=== PATIENT | male | born 1995 | race Caucasian/White ===

== ENCOUNTER 2024-12-20 11:24 | Emergency (ER) | payer OTHER, SELFPAY ==
[2024-12-20 11:44] VITALS: BP 166/111; PULSE 95; RESP 16; TEMP 36.8; O2SAT 98
[2024-12-20 11:45] VITALS: BP 182/131
--- NOTE | 2024-12-20 12:59 | ED.SKABFB ---
HPI - Skin/Abscess/Foreign Bdy General Chief complaint: Skin/Abscess/Foreign Body Stated complaint: Black spot on penis Time Seen by Provider: 12/20/24 12:50 Source: patient and RN notes reviewed Mode of arrival: ambulatory Limitations: no limitations History of Present Illness HPI narrative: 29-year-old male patient presents today complaining of a ?black spot? on the perineum where he has several skin tags that have been present since high school. He noted the area around midnight last night and complains of some mild discomfort. Related Data Allergies Allergy/AdvReac Type Severity Reaction Status Date / Time No Known Allergies Allergy Verified 12/20/24 11:35 PMFSH Social History Social History (Reviewed 12/20/24 @ 13:00 by Nia Valera, EQUIPMENT MONITOR PHOTOTYPESETTING, SECURITY INTERN) Smoking status: Never smoker Comments At time of signature, I have reviewed and agree with nursing past medical, surgical, social and family history unless otherwise noted. Please see nursing chart for further information. There is no relevant family history pertinent to the presenting complaint Exam Narrative: GENERAL: Well-appearing, well-nourished, and in no acute distress. HEAD: Normocephalic, atraumatic. EYES: EOMI. No redness or drainage. Conjunctivae normal. ENT: Mucous membranes pink and moist. NECK: Normal AROM. CHEST: No respiratory distress. EXTREMITIES: Normal range of motion. No edema. SKIN: Warm, dry, no rash. Capillary refill normal. Normal skin turgor. Exam chaperoned by my student Berenice Polk RN. Cluster of moderately sized skin tags to the perineum. 1 skin tag is black in color and firm and tender to palpation. No surrounding erythema or edema. NEURO: No focal deficits. Alert and oriented x3. Gait steady. PSYCH: Normal affect. No signs of depression or anxiety. Course Course Level of Care: Express Care Visit Vital Signs Vital signs: Vital Signs Temperature 98.3 F 12/20/24 11:44 Pulse Rate 95 12/20/24 11:44 Respiratory Rate 16 12/20/24 11:44 Blood Pressure 166/111 H 12/20/24 11:44 Pulse Oximetry 98 12/20/24 11:44 Oxygen Delivery Room Air 12/20/24 11:44 Temperature 98.3 F 12/20/24 11:44 Pulse Rate 95 12/20/24 13:22 Respiratory Rate 16 12/20/24 11:44 Blood Pressure 172/120 H 12/20/24 13:22 Pulse Oximetry 98 12/20/24 11:44 Oxygen Delivery Room Air 12/20/24 11:44 Reviewed MDM - Skin/Abscess/Foreign Bdy MDM Narrative Medical decision making narrative: Area in question in consistent with a skin tag with blood flow that has been cut off, likely due to twisting. Recommend leaving skin tag alone until it falls off. Also recommend follow up with PCP or dermatology for further evaluation of this cluster of skin tags as well as monitoring for infection once this blackened skin tag falls off. Patient agrees with plan. Patient's blood pressure has been quite elevated during his visit today. Upon arrival, 166/111. Later prior to discharge, 189/122 and 172/120. Patient has no history of illicit drug use, drinks no caffeine, and uses no supplements. He last saw his PCP over 1 year ago, does not remember her name, and states he was told he had some elevated BP at his last appointment, but was not started on any medication at that time. Patient has no symptoms to suggest complications related to BP such as headache, dizziness, chest pain, vision changes. Consultation with collaborating physician, Dr. Cobb at 1333. Recommends starting patient on some daily amlodipine with close PCP follow up. Patient agrees with plan. Anticipatory guidance and ED precautions given. Differential Diagnosis Differential diagnosis: Likely abscess of skin or subcutaneous tissue, cellulitis and other (skin tag) Critical Care Time Critical Care Time Critical Care Time: No Discharge Plan Discharge Clinical Impression: Skin tag of perineum in male, Elevated blood pressure reading without diagnosis of hypertension Patient Disposition: Home Condition: Stable Additional Instructions: As discussed, the blackened area is a skin tag who is blood flow has been cut off. Please leave this alone as it will likely fall off on its own in the next few days. After avulsed off, please monitor for any signs of infection such as redness, swelling, increased pain, or drainage. Please follow-up with your PCP or Dermatology regarding the remainder of your skin tags. Please call your PCPs office today and schedule a follow-up visit as soon as possible. Start the amlodipine and take as directed for your extremely elevated blood pressure. If you develop headache, dizziness or lightheadedness, chest pain, please go to the ER immediately. Patient Language: South African Prescriptions: New amlodipine 2.5 mg tablet 2.5 mg PO DAILY Qty: 30 0RF Follow-up/Referrals: PHYSICIAN,BUS CLEANER [Primary Care Provider, Internal Medicine] Stand Alone Forms: Work/School Release IP Time of Disposition: 13:45
[2024-12-20 13:20] VITALS: BP 189/122; PULSE 95
[2024-12-20 13:22] VITALS: BP 172/120; PULSE 95
== END 2024-12-20 13:40 | disposition home or self-care (01) ==
PROVIDERS: Emergency Provider Nurse Practitioner
DX: L91.8 Other hypertrophic disorders of the skin (principal); R03.0 Elevated blood-pressure reading, without diagnosis of hypertension
CPT/HCPCS: 99203; G0463

== ENCOUNTER 2025-01-10 09:38 | Emergency (ER) | payer OTHER, SELFPAY ==
--- NOTE | ~2025-01-10 | CT_ITS ---
EXAMINATION: CT brain wo con DATE: 01/10/2025 10:43 INDICATION: Headaches TECHNIQUE: Computed tomography (CT) of the head was performed without intravenous contrast. Sagittal and coronal reconstructions were performed. The mA was adjusted according to patient size. Iterative reconstruction technique was employed. The dose-length product was 605.33 mGy-cm. COMPARISON: None FINDINGS: No acute intracranial hemorrhage, acute infarction or abnormal extra axial fluid collection. Ventricles are normal and symmetric. Normal variant cavum septum pellucidum et vergae. No mass/mass effect. The orbits, paranasal sinuses and mastoid air cells are normal. IMPRESSION: 1. Normal brain. No acute intracranial process. Reviewed, dictated and finalized at location A. [facility]
[2025-01-10 09:45] VITALS: BP 175/109; PULSE 104; RESP 17; TEMP 36.6; O2SAT 99
[2025-01-10 10:31] VITALS: PULSE 98; O2SAT 98
--- NOTE | 2025-01-10 10:31 | ED_ITS ---
HPI - Neuro Symptoms/Deficit General Chief Complaint: Neuro Symptoms/Deficit Stated Complaint: double vision/anxiety Time Seen by Provider: 01/10/25 09:49 Source: patient Mode of arrival: ambulatory Limitations: no limitations History of Present Illness HPI Narrative: This is a 29-year-old male that presents to the emergency department with several neurologic complaints. Ongoing over the last week. Reports he has had some headaches. Reports a focal area of numbness to the right side of the face. Unsure if it is due to a tooth that has been bothering him. Reports this morning he felt like he was having double vision. Also reports he felt like his right hand was weak. Denies any current symptoms. Reports he has been very anxious recently. Related Data Allergies Allergy/AdvReac Type Severity Reaction Status Date / Time No Known Allergies Allergy Verified 12/20/24 11:35 Review of Systems 2 Review of Systems: All systems reviewed & are unremarkable except as noted in HPI and below PMFSH Past Medical History Medical History (Updated 01/10/25 @ 12:14 by Bhavya Hensley PA-C) Hypertension Social History Social History (Reviewed 12/20/24 @ 13:00 by Nia Valera, CLINICAL QUALITY MANAGER, INSTRUCTIONAL SERVICES SPECIALIST) Smoking status: Never smoker Exam 2 Narrative: GENERAL: Well-appearing, well-nourished, and in no acute distress. HEAD: Normocephalic, atraumatic. EYES: PERRLA and EOMI. ENT: Nares clear, no rhinorrhea or epistaxis. Mucous membranes moist. Oropharynx without tonsillar hypertrophy exudate or other lesions. Bilateral TMs pearly lara non-bulging NECK: Supple. No adenopathy or masses. CHEST: Clear to auscultation. No respiratory distress. No wheezes rales or rhonchi HEART: Regular rate and rhythm. No murmur heard. Normal peripheral pulses. ABDOMEN: Soft, nontender, nondistended, normal active bowel sounds. EXTREMITIES: Normal range of motion. No edema. Strength equal in bilateral upper and lower extremities (5/5) SKIN: Warm, dry, no rash. NEURO: No focal deficits. Alert and oriented x3. Cranial nerves 2-12 grossly intact PSYCH: Normal mood and affect Course Vital Signs Vital signs: Vital Signs Temperature 98 F 01/10/25 09:45 Pulse Rate 104 H 01/10/25 09:45 Respiratory Rate 17 11/24/25 09:45 Blood Pressure 175/109 H 01/10/25 09:45 Pulse Oximetry 99 01/10/25 09:45 Oxygen Delivery Room Air 01/10/25 09:45 Temperature 98 F 01/10/25 09:45 Pulse Rate 93 01/10/25 12:13 Respiratory Rate 16 01/10/25 12:13 Blood Pressure 162/113 H 01/10/25 12:13 Pulse Oximetry 96 01/10/25 12:13 Oxygen Delivery Room Air 01/10/25 09:45 MDM - Neuro Symptoms/Deficit MDM Narrative Medical decision making narrative: Patient presents the emergency department with several neurologic complaints. Ongoing over the last week. Reports he has had some headaches, reports he felt like his right arm was weak, reports double vision that subsided. Reporting he has been having trouble with anxiety recently. He is neurologically intact without any current symptoms. Hypertensive upon arrival, this did down trend without intervention. He does have known history of hypertension. CBC and metabolic panel without concerning findings. CT brain is normal. Patient updated on his workup and agrees with plan of care. Instructed to have further follow-up with his PCP. Given information follow-up with Neurology. He was given warnings to return to the ER Differential Diagnosis Differential diagnosis: Likely peripheral neuropathy, cerebrovascular accident, transient cerebral ischemia and other (anxiety) Lab Data Attestation: I reviewed the patient's lab results. 01/10/25 10:52 01/10/25 10:52 Labs: Lab Results 01/10/25 01/10/25 Range/Units 10:50 10:52 WBC 13.2 H (4.5-10.0) K/mm3 RBC 5.44 (4.6-6.20) M/mm3 Hgb 15.5 (14.0-18.0) g/dL Hct 45.0 (42.0-52.0) % MCV 82.7 (80-100) fl MCH 28.5 (26-34) pg MCHC 34.4 (32-36) g/dl RDW 13.4 (11.5-14.5) % Plt Count 367 (150-375) k/mm3 MPV 7.8 (7.4-10.4) fl Immature Gran % (Auto) 1.1 H (0-0.5) % Neut % (Auto) 68.3 (45.5-73.1) % Lymph % (Auto) 22.7 (18.3-44.2) % [place] % (Auto) 6.5 (2.6-8.5) % Eos % (Auto) 1.0 (0-4.4) % Baso % (Auto) 0.4 (0.2-1.2) % Lymph # (Auto) 2.99 (0.9-3.2) K/mm3 [place] # (Auto) 0.9 H (0.1-0.6) K/mm3 Eos # (Auto) 0.1 (0-0.3) K/mm3 Baso # (Auto) 0.1 (0.0-0.1) K/mm3 Abs Immat Gran (auto) 0.15 H (0.00-0.031) K/mm3 Absolute Neuts (auto) 9.0 H (1.3-6.7) K/mm3 Absolute Nucleated RBC 0.000 (0.0-0.012) K/mm3 Nucleated RBC % 0.0 (0.0-0.2) % PT 12.8 (11.1-14.7) Seconds INR 1.0 APTT 28.2 (22.3-36.8) Seconds Sodium 138 (137-145) mmol/L Potassium 3.7 (3.4-5.0) mmol/L Chloride 103 (98-107) mmol/L Carbon Dioxide 27 (22-30) mmol/L Anion Gap 8 (4-12) mmol/L BUN 10 (9-20) mg/dL Creatinine 0.82 (0.7-1.3) mg/dL Estim Creat Clear Calc 156 ml/min Estimated GFR > 60 (59 - ) Glucose 94 (65-110) mg/dL POC Capillary Glucose 102 (65-105) mg/dl Calcium 8.8 (8.4-10.2) mg/dL Total Bilirubin 0.6 (0.2-1.3) mg/dL AST 31 (17-59) U/L ALT 57 H (6-50) U/L Alkaline Phosphatase 98 (38-126) U/L Total Protein 6.9 (6.3-8.2) g/dL Albumin 4.1 (3.5-5.1) g/dL TSH (Reflex) 1.740 (0.465-4.68) uIU/mL Imaging Data Radiologist's impression: ITS Impressions Head CT 01/10/25 11:12 IMPRESSION: 1. Normal brain. No acute intracranial process. ECG Data EKG #1: ECG completion date: 01/10/25 EKG Interpretation: normal rate, sinus rhythm, no ST changes and normal QT Critical Care Time Critical Care Time Critical Care Time: No Discharge Plan Discharge Clinical Impression: Double vision Patient Disposition: Home Condition: Stable Instructions: Acute Headache (ED), Diplopia (ED) Additional Instructions: Return to the emergency department if you experience fever, chest pain, shortness of breath, abdominal pain with nausea and vomiting, weakness, numbness, or any other symptoms that are concerning to you. Take your blood pressure medication as prescribed Follow up with your primary care doctor for further evaluation Patient Language: Citizen Of [place] Prescriptions: No Action amlodipine 2.5 mg tablet 2.5 mg PO DAILY Qty: 30 0RF Follow-up/Referrals: Stanley Kearns MD [Physician, Neurology] PHYSICIAN,DIALYSIS NURSE [Primary Care Provider, Internal Medicine] Stand Alone Forms: Work/School Release IP
--- NOTE | 2025-01-10 10:31 | ECG_ITS ---
Test Date: 2025-01-10 11:07:37 Measurements Intervals Bazine Rate: 86 P: 19 NH: 164 QRS: 3 QRSD: 93 T: 6 QT: 342 QTc: 411 Interpretive Statements SINUS RHYTHM EARLY REPOLARIZATION No previous ECG available for comparison Electronically Signed On 01-10-2025 13:56:41 LICENSED LOAN OFFICER by Nadeem Arora M.D.
--- OUTSIDE RECORDS SUMMARY | 2025-01-10 10:50 | XMS_ITS | Clinical Summary ---
Author Organization [facility] Address [facility] [place] [address] Care Team Providers Care Hot Box Checker Name Role Phone Srinath Houser MD Primary Care Provider [phone] Allergies No known active allergies Medications methylPREDNISol one, MARK, 4 MG tablet Take as directed on package. 1 each 06/19/2019 Active promethazine-de xtromethorphan 6.25-15 MG/5ML syrup Take 5 mLs by mouth 4 (four) times daily as needed for Cough. 118 mL 06/19/2019 Active loratadine (CLARITIN) 10 MG tablet Take 1 tablet (10 mg total) by mouth daily. 30 tablet 06/19/2019 Active Social History Tobacco Use Types Packs/Day Years Used Date Smoking Tobacco: Never Smokeless Tobacco: Never Alcohol Use Standard Drinks/Week Comments Yes 0 (1 standard drink = 0.6 oz pur e alcohol) Rarely Sex and Gender Information Value Date Recorded Sex Assigned at Not on file Legal Sex Male 8:26 PM CDT Gender Identity Not on file Sexual Orientation Not on file Last Filed Vital Signs Vital Sign Reading Time Taken Comments Blood Pressure 133/106 06/19/2019 5:44 PM CDT Pulse 91 06/19/2019 5:44 PM CDT Temperature 36.8 C (98.2 F) 06/19/2019 3:59 PM CDT Respiratory Rate 18 06/19/2019 3:59 PM CDT Oxygen Saturation 96% 06/19/2019 5:44 PM CDT Inhaled Oxygen Concentration - - Weight 117.7 kg (259 lb 6 oz) 06/19/2019 3:59 PM CDT Height 188 cm (6' 2) 06/19/2019 3:59 PM CDT Body Mass Index 33.3 06/19/2019 3:59 PM CDT Plan of Treatment Health Maintenance Due Date Last Done Comments Annual Physical 2000 Hepatitis C 09/11/2015 DTaP, Tdap and Td Vaccines ( 1 - Tdap) 2016 Hepatitis B Vaccines (1 of 3 - 19+ 3-dose series) 2016 HPV Vaccines (1 - 3-dose SCD M series) 2024 COVID-19 Vaccine (1 - 2024-2 6 season) 2024 Influenza Adult (#1) 2024 Hepatitis A Vaccines Aged Out No long er eligible based on patient's age to complete this topic Meningococcal B Vaccine Aged Out No l onger eligible based on patient's age to complete this topic Meningococcal Vaccine Aged Out No lenora erin eligible based on patient's age to complete this topic Pneumococcal Vaccine: Pediat rics (0 to 5 Years) and At-Risk Patients (6 to 49 Years) Aged Out No longer eligible b ased on patient's age to complete this topic RSV Immunizations Under 20 Months Aged Out No longer eligible based on patient's age to complete this topic Insurance [facility] Care Teams Hot Box Checker Relationship Specialty Start Date End Date Srinath Houser MD [address] [place] [address] PCP - General FAMILY PRACTICE 06/19/19
--- OUTSIDE RECORDS SUMMARY | 2025-01-10 10:50 | XMS_ITS | Clinical Summary ---
Author Organization [facility] [employer] [place] Address [address] [place] [address] Care Team Providers Care Motorcycle Builder Name Role Phone Yadi Brice MD Primary Care Provider [phone] Allergies Active Allergy Reactions Criticality Noted Date Comments Lactose Diarrhea Low 08/25/2021 Medications Irbesartan (AVAPRO) 75 mg tabletIndications :Uncontrolled hypertension Take 1 Tablet (75 mg) by mouth daily at bedtime. 100 Tablet 5 Active amLODIPine (NORVASC) 2.5 mg tablet Take 1 Tablet by mouth daily. 5 01/06/20 25 Discontinue d(Alternate therapy prescribed) Active Problems Problem Noted Date Diagnosed Date Uncontrolled hypertension 01/05/2025 Morbid obesity with body mass index of 40.0-49.9 03/19/2024 Conductive hearing loss of r ight ear with unrestricted hearing of left ear 01/12/2020 Encounters Date Type Department Care Team Description 01/05/2025 10:00 AM INSTALLERS MECHANICAL Office Visit [facility] [employer] [place] [address] [place] [address] Yadi Brice MD Uncontrolled hypertension (Primary Dx); Morbid obesity with body mass index of 40.0-49.9 ([facility]) 12/22/2024 11:00 AM INSTALLERS MECHANICAL Office Visit [facility] [employer] [place] [address] [place] [address] Galina Castano, CLARA Benign hypertension (Primary Dx); Uncontrolled hypertension from Last 3 Months Immunizations Immunization Administration Dates Next Due INFLUENZA VACCINE QUADRIVALENT 6 MOS UP PF IM ,12/03/2017 INFLUENZA VACCINE TRIVALENT SPLIT VIRUS, (6 MOS UP), 0.5ML (PF), IM 01/05/2025 Family History Medical History Relation Name Comments No Known Problems Maternal Grandfather No Known Problems Maternal Grandmother Diabetes Mother Hypertension Mother No Known Problems Paternal Grandmother Relation Name Status Comments Father Alive Maternal Grandfather Alive Maternal Grandmother Alive Mother Alive Paternal Grandfather Unknown Paternal Grandmother Alive Social History Tobacco Use Types Packs/Day Years Used Date Smoking Tobacco: Never Smokeless Tobacco: Never Tobacco Cessation:Counseling Given: Not Answered Alcohol Use Standard Drinks/Week Comments Yes 0 (1 standard drink = 0.6 oz pure alcohol) Very occasional 1-2 drinks a year Sex and Gender Information Value Date Recorded Sex Assigned at Not on file Legal Sex Male 6:26 PM INSTALLERS MECHANICAL Gender Identity Not on file Sexual Orientation Not on file Last Filed Vital Signs Vital Sign Reading Time Taken Comments Blood Pressure 164/100 01/05/2025 10:20 AM INSTALLERS MECHANICAL Pulse 101 01/05/2025 9:35 AM INSTALLERS MECHANICAL Temperature 36.8 C (98.3 F) 01/05/2025 9:35 AM INSTALLERS MECHANICAL Respiratory Rate 18 01/05/2025 9:35 AM INSTALLERS MECHANICAL Oxygen Saturation 97% 01/05/2025 9:35 AM INSTALLERS MECHANICAL Inhaled Oxygen Concentration - - Weight 127.5 kg (281 lb) 01/05/2025 9:35 AM INSTALLERS MECHANICAL Height 175.3 cm (5' 9) 01/05/2025 9:35 AM INSTALLERS MECHANICAL Body Mass Index 41.5 01/05/2025 9:35 AM INSTALLERS MECHANICAL Plan of Treatment Upcoming Encounters Date Type Department Care Team (Late st Contact Info) Description 02/02/2025 10:00 AM INSTALLERS MECHANICAL Office Visit [facility] at [facility] [employer] [place] [address] [place] [address] Yadi Brice MD [address] [email or web address] [address] Health Maintenance Due Date Last Done Comments DTAP/TDAP/TD VACCINES (1 - Tdap) 2016 HEPATITIS B VACCINES (1 of 3 - 19+ 3-dose series) 2016 HPV VACCINES (1 - 3-dose SCDM series) 2024 Preventative Visit- Commercial Completed 03/19/2024 INFLUENZA VACCINE Completed 01/05/2025, , 12/03/2017 Insurance [facility] Care Teams Motorcycle Builder Relationship Specialty Start Date End Date Yadi Brice MD [address] [place] [address] PCP - General Internal Medicine 12/22/24
--- OUTSIDE RECORDS SUMMARY | 2025-01-10 10:50 | XMS_ITS | Clinical Summary ---
Author Organization [facility] Address [address] [place] [address] Care Team Providers Care Rn Quality Name Role Phone Provider, None Primary Care Provider Unavailabl e Allergies No known active allergies Medications No known medications Active Problems Problem Noted Date Diagnosed Date Conductive hearing loss of r ight ear with unrestricted hearing of left ear 01/12/2020 Immunizations Immunization Administration Dates Next Due Influenza Vaccine, Quadrivalent, PF 11/03/2019,1 Social History Tobacco Use Types Packs/Day Years Used Date Smoking Tobacco: Never Smokeless Tobacco: Never Tobacco Cessation:Counseling Given: Yes Alcohol Use Standard Drinks/Week Comments Not Currently 0 (1 standard drink = 0.6 oz pur e alcohol) AUDIT-C Answer Date Recorded Q1: How often do you have a drink containing alc ohol? Never 01/12/2020 Average Number of Drinks Not on file 020 Frequency of Binge Drinking Not on file 12/19 PHQ-2 Answer Date Recorded Total Score - Questions 1-9 0 12/19 Sex and Gender Information Value Date Recorded Sex Assigned at Not on file Legal Sex Male 9:28 AM CDT Gender Identity Not on file Sexual Orientation Not on file Last Filed Vital Signs Vital Sign Reading Time Taken Comments Blood Pressure 156/89 08/25/2021 5:52 PM CDT Pulse 65 08/25/2021 5:52 PM CDT Temperature 36.8 C (98.3 F) 08/25/2021 1:55 PM CDT Respiratory Rate 18 08/25/2021 5:52 PM CDT Oxygen Saturation 96% 08/25/2021 5:52 PM CDT Inhaled Oxygen Concentration - - Weight 111.1 kg (245 lb) 08/25/2021 1:55 PM CDT Height 175.3 cm (5' 9) 08/25/2021 1:55 PM CDT Body Mass Index 36.18 08/25/2021 1:55 PM CDT Plan of Treatment Health Maintenance Due Date Last Done Comments Hepatitis C Virus (HCV) Screening 1997 TdaP Immunization 1997 Varicella Immunization (1 of 2 - 13+ 2-dose series) 2010 Hepatitis B Immunization (1 of 3 - 19+ 3-dose series) 2016 Human Papillomavirus (HPV) Immunization (1 - 3-dose SCDM series) 2024 Influenza Immunization (#1) 10/18/202410/18, 12/03/2017 SARS-COV-2 Immunization (1 - 2024- season) 2024 Respiratory Syncytial Virus (RSV) Immunization (Adult) (1 - 1-dose 75+ series) 2072 Meningococcal Immunization (ACWY) Aged Out No longer eligible b ased on patient's age to complete this topic Pneumococcal Immunization Combined Aged Out No longer eligible b ased on patient's age to complete this topic Rotavirus Immunization Aged Out No lo nger eligible based on patient's age to complete this topic Insurance Care Teams Rn Quality Relationship Specialty Start Date End Date Provider, None [place] PCP - General 08/25/21
[2025-01-10 10:55] VITALS: BP 181/112; PULSE 95; RESP 18; O2SAT 100
[2025-01-10 10:57] LABS: Hematocrit 45.0 % (42.0-52.0); Hemoglobin 15.5 g/dL (14.0-18.0); Immature Granulocyte Percent A 1.1 % (0-0.5); Lymphocytes Absolute Auto 2.99 K/mm3 (0.9-3.2); Mean Corpuscular HGB Conc 34.4 g/dl (32-36); Mean Corpuscular Hemoglobin 28.5 pg (26-34); Mean Corpuscular Volume 82.7 fl (80-100); Nucleated Red Blood Cells Absolute Auto 0.000 K/mm3 (0.0-0.012); Nucleated Red Blood Cells Perc 0.0 % (0.0-0.2); Platelet Count Result 367 k/mm3 (150-375); Red Blood Count 5.44 M/mm3 (4.6-6.20); White Blood Count 13.2 K/mm3 (4.5-10.0)
[2025-01-10 11:00] VITALS: BP 176/110; PULSE 97; RESP 20; O2SAT 94
[2025-01-10 11:01] VITALS: PULSE 101; RESP 20; O2SAT 98
[2025-01-10 11:10] LABS: INR 1.0; Prothrombin Time 12.8 Seconds (11.1-14.7)
[2025-01-10 11:11] LABS: Partial Thromboplastin Time 28.2 Seconds (22.3-36.8)
[2025-01-10 11:18] LABS: Alanine Aminotransferase 57 U/L (6-50); Albumin Level 4.1 g/dL (3.5-5.1); Alkaline Phosphatase 98 U/L (38-126); Anion Gap 8 mmol/L (4-12); Aspartate Amino Transferase 31 U/L (17-59); Bilirubin,Total 0.6 mg/dL (0.2-1.3); Blood Urea Nitrogen 10 mg/dL (9-20); Calcium 8.8 mg/dL (8.4-10.2); Carbon Dioxide 27 mmol/L (22-30); Chloride 103 mmol/L (98-107); Estimated CRCL calculation 156 ml/min; Estimated Glomerular Filt Rate > 60; Glucose 94 mg/dL (65-110); Potassium 3.7 mmol/L (3.4-5.0); Sodium 138 mmol/L (137-145); Total Protein 6.9 g/dL (6.3-8.2)
--- OUTSIDE RECORDS SUMMARY | 2025-01-10 11:29 | XMS_ITS | Clinical Summary ---
Author Organization [facility] [employer] [place] Address [address] [place] [address] Care Team Providers Care Digital Ad Trafficker Name Role Phone Yadi Brice MD Primary Care Provider [phone] Allergies Active Allergy Reactions Criticality Noted Date [...] Department Care Team Description 01/05/2025 10:00 AM STENCIL MAKER Office Visit [facility] [employer] [place] [address] [place] [address] Yadi Brice MD Uncontrolled hypertension (Primary Dx); Morbid obesity with body mass index of 40.0-49.9 ([facility]) 12/22/2024 11:00 AM STENCIL MAKER Office Visit [facility] [employer] [place] [address] [place] [address] Galina Castano, CLARA Benign hypertension (Primary [...] on file Legal Sex Male 6:26 PM STENCIL MAKER Gender Identity Not on file Sexual Orientation Not on file Last Filed Vital Signs Vital Sign Reading Time Taken Comments Blood Pressure 164/100 01/05/2025 10:20 AM STENCIL MAKER Pulse 101 01/05/2025 9:35 AM STENCIL MAKER Temperature 36.8 C (98.3 F) 01/05/2025 9:35 AM STENCIL MAKER Respiratory Rate 18 01/05/2025 9:35 AM STENCIL MAKER Oxygen Saturation 97% 01/05/2025 9:35 AM STENCIL MAKER Inhaled Oxygen Concentration - - Weight 127.5 kg (281 lb) 01/05/2025 9:35 AM STENCIL MAKER Height 175.3 cm (5' 9) 01/05/2025 9:35 AM STENCIL MAKER Body Mass Index 41.5 01/05/2025 9:35 AM STENCIL MAKER Plan of Treatment Upcoming Encounters Date Type Department Care Team (Late st Contact Info) Description 02/02/2025 10:00 AM STENCIL MAKER Office Visit [facility] [employer] [place] [address] [place] [address] Yadi Brice MD [address] [place] [address] Health Maintenance Due Date Last Done Comments DTAP/TDAP/TD VACCINES (1 - Tdap) 2016 HEPATITIS B VACCINES (1 of 3 - 19+ 3-dose series) 2016 HPV VACCINES (1 - 3-dose SCDM series) 2024 Preventative Visit- Commercial Completed 03/19/2024 INFLUENZA VACCINE Completed 01/05/2025, , 12/03/2017 Insurance [facility] Care Teams Digital Ad Trafficker Relationship Specialty Start Date End Date Yadi Brice MD [address] [place] [address] PCP - General Internal Medicine 12/22/24
--- OUTSIDE RECORDS SUMMARY | 2025-01-10 11:29 | XMS_ITS | Clinical Summary ---
Author Organization [facility] Address [facility] [place] [address] Care Team Providers Care Insole Coverer Name Role Phone Srinath Houser MD Primary Care Provider [phone] Allergies No known active allergies Medications methylPREDNISol [...] patient's age to complete this topic Insurance [facility] Care Teams Insole Coverer Relationship Specialty Start Date End Date Srinath Houser MD [address] [place] [address] PCP - General FAMILY PRACTICE 06/19/19
[2025-01-10 11:49] LABS: Thyroid Stimulating Hormone Reflex 1.740 uIU/mL (0.465-4.68)
[2025-01-10 12:13] VITALS: BP 162/113; PULSE 93; RESP 16; O2SAT 96
== END 2025-01-10 12:25 | disposition home or self-care (01) ==
PROVIDERS: Emergency Provider Physician Assistant
DX: H53.2 Diplopia (principal); I10 Essential (primary) hypertension
CPT/HCPCS: 36415; 70450; 80053; 82948; 84443; 85025; 85610; 85730; 93005; 99284